=== PATIENT | female | born 1990 | race Two or more races ===

== ENCOUNTER 2025-04-12 13:01 | Emergency (ER) | payer OTHER ==
[~2025-04-12] VITALS: Ht 157.5 cm; Wt 65.6 kg
--- NOTE | 2025-04-12 14:50 | ED.PDOC ---
SOB-HPI HPI Comments 34-year-old female with a history of asthma complaining of shortness of breath. Patient states she was at work where they were working on a water heater and she began to notice a strong odor, then developed difficulty breathing, dizziness, generalized weakness, headache and chest tightness. She states she used her inhaler with some relief, however she still having symptoms. She denies any fever, cough, nausea, vomiting, diaphoresis or edema. 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 Moist mucous membranes.) Neck: Full Range of Motion, Normal Inspection Respiratory: Decreased Breath Sounds, No Accessory Muscle Use, No Respiratory Distress Cardiovascular: No Edema, No JVD, Regular Rate/Rhythm Breast Exam: Deferred Gastrointestinal: Non Tender, Soft Genitalia: Deferred Pelvic: Deferred Rectal: Deferred Extremities: Normal inspection, Normal range of motion, Non-tender, No pedal edema Neurologic: Alert (Oriented x4), Normal Affect, Normal Mood, Other (Ambulatory) Cerebellar Function: NOT DONE Reflexes: NOT DONE Skin: Dry, Normal Color, Warm Lymphatic: NOT DONE Was a procedure done? Was a procedure done?: No Differential Dx Differential Diagnosis: Asthma, CHF, COPD, Myocardial infarction, Pneumonia, Respiratory Distress, URI Comments inhalation exposure, pneumonitis, carbon monoxide toxicity, among others X-Ray, Labs, Meds, VS Vital Signs Date Time Temp Pulse Resp B/P (MAP) Pulse Ox O2 Delivery O2 Flow Rate FiO2 04/12/25 20:23 66 18 100 Room Air* 0 21 04/12/25 20:22 98.7 66 18 131/76 (94) 100 98.7 04/12/25 18:38 55 16 102/68 (79) 100 04/12/25 15:10 18 100 Room Air* 0 21 04/12/25 13:08 98.3 66 18 127/73 99 98.3 Lab Test 04/12/25 16:02 9/3/25 15:15 04/12/25 15:13 Range/Units Troponin I High Sensitivity < 3 L < 3 L </=34 ng/L White Blood Count 5.7 4.4-10.8 10^3/uL Red Blood Count 5.02 4.0-5.20 10^6/uL Hemoglobin 15.2 12.2-16.2 g/dL Hematocrit 44.8 36.0-46.0 % Mean Corpuscular Volume 89.2 80.0-100.0 fL Mean Corpuscular Hemoglobin 30.3 28.0-32.0 pg Mean Corpuscular Hemoglobin Concent 34.0 32.0-36.0 g/dL Red Cell Distribution Width 13.8 11.8-14.3 % Platelet Count 245 140-450 10^3/uL Mean Platelet Volume 8.4 6.9-10.8 fL Neutrophils (%) (Auto) 65.6 37.0-80.0 % Lymphocytes (%) (Auto) 25.3 10.0-50.0 % Monocytes (%) (Auto) 7.0 0.0-12.0 % Eosinophils (%) (Auto) 1.2 0.0-7.0 % Basophils (%) (Auto) 0.9 0.0-2.0 % Neutrophils # (Auto) 3.8 1.6-8.6 10 ^3/uL Lymphocytes # (Auto) 1.5 0.4-5.4 10 ^3/uL Monocytes # (Auto) 0.4 0-1.3 10 ^3/uL Eosinophils # (Auto) 0.1 0-0.8 10 ^3/uL Basophils # (Auto) 0 0-0.2 10 ^3/uL Nucleated Red Blood Cells 0.1 % Sodium Level 141 136-145 mmol/L Potassium Level 4.4 3.5-5.1 mmol/L Chloride Level 104 98-107 mmol/L Carbon Dioxide Level 28 20-31 mmol/L Anion Gap 9 5-15 Blood Urea Nitrogen 9 9-23 mg/dL Creatinine 0.71 0.550-1.02 mg/dL Glomerular Filtration Rate Calc 114 >90 mL/min BUN/Creatinine Ratio 12.7 10.0-20.0 Serum Glucose 91 74-106 mg/dL Calcium Level 9.7 8.7-10.4 mg/dL B-Type Natriuretic Peptide 12.84 0-100 pg/mL Blood Gas Specimen Type Arterial Blood Gas Sample Site Right radial Blood Gas Patient Temperature 37.0 Arterial Blood Date Drawn [id number] Arterial Blood pH 7.443 7.350-7.450 Arterial Blood Partial Pressure CO2 36.1 32.0-45.0 mmHg Arterial Blood Partial Pressure O2 85.1 83.0-108.0 mmHg Arterial Blood HCO3 24.1 21.0-28.0 mmol/L Arterial Blood Oxygen Saturation 96.4 94.0-98.0 % Arterial Blood Base Excess 0.5 -2.0-3.0 mmol/L Arterial Blood Oxyhemoglobin 95.4 94.0-98.0 % Arterial Blood Carboxyhemoglobin 0.4 L 0.5-1.5 % Arterial Blood Methemoglobin 0.6 0.0-1.5 % Hua Test Yes Blood Gas Total Hemoglobin 15.10 12.0-16.0 g/dL Blood Gas Modality Room air FiO2 % 21.0 Current Medications Medications (Trade) Dose Ordered Sig/Yonny Route Start Time Stop Time Status Last Admin Albuterol (Ventolin Medneb) 5 mg ONCE ONCE NEB 04/12/25 15:00 04/12/25 15:01 DC 04/12/25 15:10 Ipratropium Ollie (Atrovent Medneb) 0.5 mg ONCE ONCE NEB 04/12/25 15:00 04/12/25 15:01 DC 04/12/25 15:10 Methylprednisolone Sodium Succinate (Solu Medrol) 125 mg ONCE ONCE IV 04/12/25 15:00 04/12/25 15:01 DC 04/12/25 20:17 Acetaminophen (Tylenol Tablet Or Capsule) 1,000 mg ONCE ONCE PO 04/12/25 15:00 04/12/25 15:01 DC 04/12/25 15:00 Sodium Chloride 1,000 ml @ 1,000 mls/hr Q1H ONCE IV 04/12/25 15:00 04/12/25 15:59 DC 04/12/25 15:[address] [address] Ph: [phone] DIAGNOSTIC IMAGING Diagnostic Imaging Report : [id number] Signed PATIENT: TANNER CUMMINGSACCT: [id number] UNIT: [id number] : 1990 LOC: ER ROOM / BED: / AGE / SEX: 34 / F ADM STATUS: REG ER SERVICE 1447 ORDERING PHYSICIAN: SINDI TURNER MD PROCEDURE(s): CXRP - CHEST PORTABLE REASON: sob ORDER NUMBER(s): [id number], ACCESSION NUMBER(s): [id number] CHEST RADIOGRAPH Indication: sob Technique: Single frontal view of the chest was obtained COMPARISON: None FINDINGS: Lines and Tubes: None Lungs: Clear Pleura: No effusion. No pneumothorax. Cardiomediastinal contours: Unremarkable Bones: Unremarkable IMPRESSION: No acute disease. 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 Chest x-ray unremarkable CBC, basic metabolic panel, BNP and serial troponins unremarkable. ABG unremarkable Patient treated with the following in the ED: Albuterol 5 mg/Atrovent 0.5 mg nebulized, Solu-Medrol 125 mg IV, 1 L 0.9 normal saline IV bolus Tylenol 1 g p.o. On re-evaluation, patient states her symptoms have improved. She is not in any respiratory distress and vitals were stable. She appears stable for discharge with close outpatient follow-up with her primary physician or occupational health care provider. Rx prednisone, Tylenol Time of 1ST Reevaluation: 19:00 Reevaluation 1ST: Improved Patient Education/Counseling: Diagnosis, Treatment Family Education/Counseling: No Family Present SEPSIS Sepsis Screen Date sepsis recognized/suspect: Apr 12, 2025 Time Sepsis recognized/suspect: 1310 Recent Procedure: No On Antibiotic Therapy: No Respiratory Rate >20: No Heart Rate >90: No Temp<36 C (96.8 F) or >38.3 C: No SBP <90 or MAP <65 mmHG: No New Acute Mental Status Change: No Is the patient on CPAP, BIPAP,: No Physician Orders Chest Portable (04/12/25 14:47) Electrocardigram (04/12/25 14:47) Abg W/ Co-Ox (04/12/25 14:47) Vital Signs Date Time Temp Pulse Resp B/P (MAP) Pulse Ox O2 Delivery O2 Flow Rate FiO2 04/12/25 20:23 66 18 100 Room Air* 0 21 04/12/25 20:22 98.7 66 18 131/76 (94) 100 98.7 04/12/25 18:38 55 16 102/68 (79) 100 04/12/25 15:10 18 100 Room Air* 0 21 04/12/25 13:08 98.3 66 18 127/73 99 98.3 Laboratory Tests Test 04/12/25 15:15 White Blood Count 5.7 10^3/uL (4.4-10.8) Medications Medications Dose Ordered Sig/Yonny Route Start Time Stop Time Status Last Admin Dose Admin Acetaminophen 1,000 mg ONCE ONCE PO 04/12/25 15:00 04/12/25 15:01 DC 04/12/25 15:00 Albuterol 5 mg ONCE ONCE NEB 04/12/25 15:00 04/12/25 15:01 DC 04/12/25 15:10 Ipratropium Ollie 0.5 mg ONCE ONCE NEB 04/12/25 15:00 04/12/25 15:01 DC 04/12/25 15:10 Methylprednisolone Sodium Succinate 125 mg ONCE ONCE IV 04/12/25 15:00 04/12/25 15:01 DC 04/12/25 20:17 Sodium Chloride 1,000 ml @ 1,000 mls/hr Q1H ONCE IV 04/12/25 15:00 04/12/25 15:59 DC 04/12/25 15:00 Departure 1 Departure Time of Disposition: 19:00 Impression: Primary Impression: Inhalation injury Additional Impression: Asthma exacerbation Qualified Codes: J45.901 - Unspecified asthma with (acute) exacerbation Disposition: HOME / SELF CARE / HOMELESS Condition: Stable Additional Instructions: Blood tests were unremarkable, and not consistent with carbon monoxide toxicity. Your chest x-ray was normal. I have prescribed medication for your symptoms and to treat an asthma exacerbation. Follow-up with your primary doctor in 1-2 days. Return to ER for persistent or worsening symptoms. e-Prescriptions Acetaminophen (Tylenol Extra Strength) 500 Mg Tab 1000 MG PO Q6HP PRN, #30 TAB Prn pain Prov: SINDI TURNER MD 04/12/25 Prednisone (Prednisone) 20 Mg Tab 40 MG PO DAILY for 4 Days, #8 MG Prov: SINDI TURNER MD 04/12/25 Albuterol Sulfate (Albuterol Sulfate Hfa) 108 Mcg/Act Aer 2 PUFF IN Q6HP PRN, #1 AER Prn difficulty breathing or chest tightness Prov: SINDI TURNER MD 04/12/25 Discharged With: Relative Critical Care Note Critical Care Time?: No Stability Stability form required: No Heart Score Heart Score: Heart Score Response (Comments) Value History N/A 0 EKG N/A 0 Age N/A 0 Risk Factors N/A 0 Troponin N/A 0 Total 0 I personally scribed for SINDI TURNER MD ([email or web address]) on 04/12/25 at 15:45. Electronically submitted by Kingsley Galdamez ([email or web address]). SINDI TURNER MD Apr 12, 2025 14:50
[2025-04-12] MEDS: SODIUM CHLORIDE 0.9% 1,000 ML IV ONE (15:00)
[2025-04-12] MEDS: ACETAMINOPHEN 500 MG TAB or CAP PO ONE (15:00)
[2025-04-12] MEDS: IPRATROPIUM BROM 0.5 MG/2.5ML INH SOL NEB ONE (15:10)
[2025-04-12] MEDS: ALBUTEROL SULF 2.5 MG/0.5ML(0.5%) NEB SOLN NEB ONE (15:10)
--- NOTE | 2025-04-12 15:18 | DVH ---
CHEST RADIOGRAPH Indication: sob Technique: Single frontal view of the chest was obtained COMPARISON: None FINDINGS: Lines and Tubes: None Lungs: Clear Pleura: No effusion. No pneumothorax. Cardiomediastinal contours: Unremarkable Bones: Unremarkable IMPRESSION: No acute disease.
[2025-04-12 15:20] LABS: Base Excess 0.5 mmol/L (-2.0-3.0)
[2025-04-12 15:33] LABS: Hematocrit 44.8 % (36.0-46.0); Hemoglobin 15.2 g/dL (12.2-16.2); Mean Corpuscular Hemoglobin 30.3 pg (28.0-32.0); Mean Corpuscular Volume 89.2 fL (80.0-100.0); Nucleated Red Blood Cells % 0.1 %
[2025-04-12 15:41] LABS: Chloride 104 mmol/L (98-107); Potassium 4.4 mmol/L (3.5-5.1); Sodium 141 mmol/L (136-145)
[2025-04-12 15:42] LABS: Anion Gap 9 (5-15); Carbon Dioxide 28 mmol/L (20-31)
[2025-04-12 15:43] LABS: Calcium 9.7 mg/dL (8.7-10.4)
[2025-04-12 15:47] LABS: BUN/Creatinine Ratio 12.7 (10.0-20.0); Blood Urea Nitrogen 9 mg/dL (9-23); Glucose 91 mg/dL (74-106)
[2025-04-12] MEDS: methylPREDNISolone SOD SUCC 125 MG/2 ML VL IV ONE (20:17)
[2025-04-12 20:22] VITALS: BP 131/76; TEMP 98.7
[2025-04-12 20:23] VITALS: PULSE 66; RESP 18; O2SAT 100
[2025-04-12] MEDS ORDERED: ACET-1304 PO (20:33)
[2025-04-12] MEDS ORDERED: PRED20TA2 PO (20:33)
[2025-04-12] MEDS ORDERED: ALBU108A5 IN (20:33)
== END 2025-04-12 20:59 | disposition home or self-care (01) ==
LOC: ER 13:01
DX: J70.5 Respiratory conditions due to smoke inhalation (principal); J45.901 Unspecified asthma with (acute) exacerbation; Z98.890 Other specified postprocedural states
CPT/HCPCS: 36415; 36600; 71045; 80048; 82805; 83880; 84484; 85025; 94640; 96361; 96374; 99284; J2919; J7030